=== PATIENT | female | born 2000 | race American Indian/Alaskan Native ===

== ENCOUNTER 2022-02-19 14:58 | Emergency (ER) | payer SELFPAY ==
[2022-02-19 18:16] VITALS: BP 177/87
== END 2022-02-19 21:00 | disposition left against medical advice (07) ==
LOC: ED 14:58
DX: K08.89 Other specified disorders of teeth and supporting structures (principal); R50.9 Fever, unspecified; Z53.21 Procedure and treatment not carried out due to patient leaving prior to being seen by health care provider